=== PATIENT | male | born 1975 | race Hispanic/Latino ===

== ENCOUNTER 2021-11-21 05:04 | Emergency (ER) | payer OTHER ==
--- NOTE | 2021-11-21 06:00 | XRay Report ---
CHEST 1 VIEW INDICATION / CLINICAL INFORMATION: Chest Pain. COMPARISON: None available. FINDINGS: SUPPORT DEVICES: None. HEART / MEDIASTINUM: No significant abnormality. LUNGS / PLEURA: No significant pulmonary or pleural abnormality. BONES: No significant osseous abnormality. ADDITIONAL FINDINGS: No significant additional findings. IMPRESSION: 1. No active cardiopulmonary disease. Signer Name: Jeff Esposito II, MD Signed: 11/21/2021 5:55 AM Workstation Name: [id number]
[2021-11-21 06:03] LABS: Basophils % (Auto) 0.2 % (0.0-1.8); Eosinophils # (Auto) 0.3 K/mm3 (0.0-0.4); Eosinophils % (Auto) 2.3 % (0.0-4.3); Hematocrit 42.9 % (35.5-45.6); Hemoglobin 15.1 gm/dl (11.8-15.2); Lymphocytes # (Auto) 2.6 K/mm3 (1.2-5.4); Lymphocytes % (Auto) 22.9 % (13.4-35.0); Mean Corpuscular HGB Conc 35 % (32-34); Mean Corpuscular Volume 83 fl (84-94); Monocytes # (Auto) 1.1 K/mm3 (0.0-0.8); Monocytes % (Auto) 9.2 % (0.0-7.3); Platelet Count 243 K/mm3 (140-440); Red Blood Count 5.19 M/mm3 (3.65-5.03)
[2021-11-21] MEDS ORDERED: cloNIDine 0.2 MG TAB PO ONE (06:18)
[2021-11-21] MEDS ORDERED: HYDROcodone/ACETAMINOPHEN 5-325 MG TAB PO ONE (06:26)
[2021-11-21 06:27] LABS: Alanine Aminotransferase 23 units/L (7-56); Albumin 3.9 g/dL (3.9-5); BUN/Creatinine Ratio 12; Blood Urea Nitrogen 23 mg/dL (9-20); Hemolysis Index 26
--- NOTE | 2021-11-21 06:32 | Emergency Department Report ---
HPI - General Chief Complaint: High BP Time Seen by Provider: 11/21/21 06:18 - [facility] HPI: Room 4 The patient is a 46-year-old male present with chief complaint of hypertension. [facility] states for the past 2 days has had a constant occipital headache. Patient states his blood pressure has been staying elevated despite taking his medication. Patient denies nausea/vomiting. Patient currently gives his headache a score 5-12/2009. ED Past Medical Hx - Past Medical History Hx Hypertension: Yes Hx Congestive Heart Failure: Yes Hx Diabetes: Yes Hx Deep Vein Thrombosis: Yes Hx Pulmonary Embolism: Yes Hx Renal Disease: Yes (Chronic renal insufficiency Baseline creatinine ) Additional medical history: Atrial fibrillation, blind in right eye - Surgical History Additional Surgical History: Bilateral femoral stents, left lower extremity - Family History Family history: no significant - Social History Smoking Status: Current Every Day Smoker (Approximate 1.5 pack/day) Substance Use Type: None ED Review of Systems ROS: Stated complaint: HTN Other details as noted in HPI Constitutional: no symptoms reported Eyes: vision change ENT: denies: throat pain Respiratory: no symptoms reported Cardiovascular: denies: chest pain Endocrine: no symptoms reported Gastrointestinal: denies: nausea, vomiting Genitourinary: denies: dysuria Musculoskeletal: back pain Neurological: headache Physical Exam - Physical Exam Vital Signs: Vital Signs 11/21/21 11/21/21 11/21/21 05:09 05:14 05:15 Temperature 98.3 F Pulse Rate 47 L Respiratory 18 Rate Blood Pressure 193/119 O2 Sat by Pulse 99 99 99 Oximetry 11/21/21 11/21/21 05:30 05:36 Temperature Pulse Rate 48 L Respiratory 12 18 Rate Blood Pressure 210/108 O2 Sat by Pulse 99 99 Oximetry Physical Exam: GENERAL: The patient is well-developed well-nourished male lying on stretcher not appearing to be in acute distress. [] HEENT: Normocephalic. Atraumatic. Extraocular motions are intact. Patient has moist mucous membranes. NECK: Supple. No meningitic signs are noted. Trachea midline CHEST/LUNGS: Clear to auscultation. There is no respiratory distress noted. HEART/CARDIOVASCULAR: Regular. There is no tachycardia. There is no gallop rub or murmur. ABDOMEN: Abdomen is soft, nontender. Patient has normal bowel sounds. There is no abdominal distention. SKIN: There is no rash. There is no edema. There is no diaphoresis. NEURO: The patient is awake, alert, and oriented. The patient is cooperative. The patient has no focal neurologic deficits. The patient has normal speech. Cranial nerves II through XII grossly intact. GCS 15 MUSCULOSKELETAL: There is no evidence of acute injury. ED Course Vital Signs 11/21/21 11/21/21 11/21/21 05:09 05:14 05:15 Temperature 98.3 F Pulse Rate 47 L Respiratory 18 Rate Blood Pressure 193/119 O2 Sat by Pulse 99 99 99 Oximetry 11/21/21 11/21/21 05:30 05:36 Temperature Pulse Rate 48 L Respiratory 12 18 Rate Blood Pressure 210/108 O2 Sat by Pulse 99 99 Oximetry - Reevaluation(s) Reevaluation #1: 11/21/21 07:48 Patient released from police custody and eloped ED Medical Decision Making - Lab Data Result diagrams: 11/21/21 05:46 11/21/21 05:46 - Radiology Data Radiology results: report reviewed (CT head, chest x-ray), image reviewed (CT head, chest x-ray) interpreted by me: Chest x-ray-no definite focal infiltrates, no pneumothorax [facility] [address] [place] [address] Cat Scan Report Signed Patient: TIESHA MOORE MR#: [id number] : 1975 Acct:[id number] Age/Sex: 46 / M ADM Date: 11/21/21 Loc: ED Attending Dr: Ordering Physician: ERICA GALAN MD Date of Service: 11/21/21 Procedure(s): CT head/brain wo con Accession Number(s): [id number] cc: ERICA GALAN MD CT HEAD WITHOUT CONTRAST INDICATION / CLINICAL INFORMATION: Hypertension, headache. TECHNIQUE: CT head was performed without administration of intravenous contrast. All CT scans at this location are performed using CT dose reduction for ALARA by means of automated exposure cont rol. COMPARISON: None available. FINDINGS: CEREBRAL HEMISPHERES: There is no evidence of large territorial infarction or significant abnormality of rae-white matter differentiation. Ventricles within normal limits. No midline shift. Basal cisterns patent. HEMORRHAGE: None. CEREBELLUM / BRAINSTEM: No significant abnormality. ORBITS: No significant abnormality. SOFT TISSUES: No significant abnormality. SKULL: No significant abnormality. PARANASAL SINUSES / MASTOID AIR CELLS: Normal as visualized. ADDITIONAL FINDINGS: None. IMPRESSION: 1. No acute intracranial abnormality. Signer Name: Giorgio Long II, MD Signed: 11/21/2021 6:49 AM Workstation Name: [id number] Transcribed By: PETROS Dictated By: GIORGIO LONG II, MD Electronically Authenticated By: GIORGIO LONG II, MD Signed Date/Time: 11/21/2149 DD/ 7 [facility] [address] [place] [address] XRay Report Signed Patient: TIESHA MOORE MR#: [id number] : 1975 Acct:[id number] Age/Sex: 46 / M ADM Date: 11/21/21 Loc: ED Attending Dr: Ordering Physician: GRISELDA FONTAINE MD Date of Service: 11/21/21 Procedure(s): XR chest 1V ap Accession Number(s): [id number] cc: GRISELDA FONTAINE MD Fluoro Time In Minutes: CHEST 1 VIEW INDICATION / CLINICAL INFORMATION: Chest Pain. COMPARISON: None available. FINDINGS: SUPPORT DEVICES: None. HEART / MEDIASTINUM: No significant abnormality. LUNGS / PLEURA: No significant pulmonary or pleural abnormality. BONES: No significant osseous abnormality. ADDITIONAL FINDINGS: No significant additional findings. IMPRESSION: 1. No active cardiopulmonary disease. Signer Name: Giorgio Long II, MD Signed: 11/21/2021 5:55 AM Wo rkstation Name: [id number] Transcribed By: PETROS Dictated By: GIORGIO LONG II, MD Electronically Authenticated By: GIORGIO LONG II, MD Signed Date/Time: 11/21/21554 DD/ 4 TD/TT: - Differential Diagnosis Hypertensive urgency, hypertensive emergency, uncontrolled hypertension Critical care attestation.: If time is entered above; I have spent that time in minutes in the direct care of this critically ill patient, excluding procedure time. ED Disposition Clinical Impression: Hypertension, Headache Disposition: 07 LEFT AWOL/ELOPED Is pt being admited?: No Does the pt Need Aspirin: No Condition: Stable Instructions: Hypertension, Adult, [id number], Hypertension (ED) Forms: AMA Form Time of Disposition: 07:48 (Patient eloped)
[2021-11-21 06:52] VITALS: BP 210/108
--- NOTE | 2021-11-21 06:53 | Cat Scan Report ---
CT HEAD WITHOUT CONTRAST INDICATION / CLINICAL INFORMATION: Hypertension, headache. TECHNIQUE: CT head was performed without administration of intravenous contrast. All CT scans at this location are performed using CT dose reduction for ALARA by means of automated exposure control. COMPARISON: None available. FINDINGS: CEREBRAL HEMISPHERES: There is no evidence of large territorial infarction or significant abnormality of rae-white matter differentiation. Ventricles within normal limits. No midline shift. Basal ciste rns patent. HEMORRHAGE: None. CEREBELLUM / BRAINSTEM: No significant abnormality. ORBITS: No significant abnormality. SOFT TISSUES: No significant abnormality. SKULL: No significant abnormality. PARANASAL SINUSES / MASTOID AIR CELLS: Normal as visualized. ADDITIONAL FINDINGS: None. IMPRESSION: 1. No acute intracranial abnormality. Signer Name: Jeff Esposito II, MD Signed: 11/21/2021 6:49 AM Workstation Name: [id number]
--- NOTE | 2021-11-21 10:18 | Electrocardiograph Report ---
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
== END 2021-11-21 07:57 | disposition left against medical advice (07) ==
LOC: ED 05:04
DX: R51.9 Headache, unspecified (principal); I11.0 Hypertensive heart disease with heart failure; I50.9 Heart failure, unspecified; E11.9 Type 2 diabetes mellitus without complications; F17.210 Nicotine dependence, cigarettes, uncomplicated; Z88.8 Allergy status to other drugs, medicaments and biological substances; Z88.1 Allergy status to other antibiotic agents; Z79.899 Other long term (current) drug therapy
CPT/HCPCS: 36415; 70450; 71045; 80053; 82550; 83690; 84484; 85025; 93005; 99285